=== PATIENT | male | born 1975 | race Caucasian/White ===

== ENCOUNTER 2017-06-29 11:53 | Emergency (ER) | payer OTHER ==
[~2017-06-29] VITALS: Ht 190.5 cm; Wt 77.1 kg
[~2017-06-29 11:53] MED LIST: ALPRAZOLAM 0.0.25 M1 PO; BENTYL 20 MG TA20 M1 PO; CITRATE OF MAG296 ML PO; HUMALOG100 UNIT/1 SUBQ; KETONE MC; LANTUS100 UNIT/M SUBQ; MIRALAX17 GM PO; NEURONTIN 300300 M1 PO; NEURONTIN300 MG PO; ONDANSETRON HCL4 M2 PO; TRAMADOL 50 MG50 MG PO
[2017-06-29 12:19] LABS: URINE BILIRUBIN NEGATIVE (Negative); URINE BLOOD NEGATIVE (Negative); URINE CLARITY CLEAR; URINE COLOR YELLOW; URINE GLUCOSE-RANDOM 3+ (Negative); URINE KETONES NEGATIVE (Negative); URINE LEUKOCYTES-REFLEX NEGATIVE (Negative); URINE NITRITE-REFLEX NEGATIVE (Negative); URINE PROTEIN NEGATIVE (Negative); URINE UROBILINOGEN 0.2 E.U./dl (0.2-1.0)
[2017-06-29 12:21] LABS: ABSOLUTE BASOPHILS 0.1 thou/uL (0.0-0.2); ABSOLUTE EOSINOPHILS 0.1 thou/uL (0.0-0.7); ABSOLUTE LYMPHOCYTES 1.4 thou/uL (0.8-5.3); ABSOLUTE MONOCYTES 0.4 thou/uL (0.0-1.2); ABSOLUTE NEUTROPHILS 3.5 thou/uL (1.6-8.1); BASOPHILS 1.2 %; EOSINOPHILS 1.8 %; HEMATOCRIT 47.3 % (42.0-52.0); HEMOGLOBIN 15.8 gm/dL (14.0-18.0); LYMPHOCYTES 24.7 %; MCH 31.8 pg (26.0-34.0); MCHC 33.3 g/dL (28.0-37.0); MCV 95.3 fL (80.0-100.0); MONOCYTES 7.9 %; MPV 7.7 fl. (7.2-11.1); NUCLEATED RBCS 0 /100WBC; PLATELET COUNT* 283 thou/uL (150-400); POLYS 64.4 %; RBC 4.97 mil/uL (4.50-6.00); RDW-CV 13.3 % (10.5-14.5); WBC 5.5 thou/uL (4.0-11.0)
[2017-06-29 12:32] LABS: CALCIUM 9.2 mg/dL (8.5-10.1); CREATININE 1.2 mg/dL (0.6-1.3); POTASSIUM 4.3 mmol/L (3.5-5.1)
[2017-06-29 12:33] LABS: TOTAL BILIRUBIN 0.5 mg/dL (<0.1-1.0)
[2017-06-29 13:11] LABS: BE -1.3 mmol/L (-2 to +3); HCO3 23.8 mmol/L (22.0-26.0); PCO2 41.3 mmHg (35.0-45.0); PO2 97.2 mmHg (75.0-100.0); pH 7.379 (7.340-7.450)
[2017-06-29] MEDS ORDERED: TRAMADOL 50 MG50 MG PO (16:22)
[2017-06-29 17:03] VITALS: BP 124/89
== END 2017-06-29 17:03 | disposition home or self-care (01) ==
LOC: M.ERS 11:53
PROVIDERS: Nurse Practitioner Family
DX: K52.9 Noninfective gastroenteritis and colitis, unspecified (principal); E11.65 Type 2 diabetes mellitus with hyperglycemia; E11.43 Type 2 diabetes mellitus with diabetic autonomic (poly)neuropathy; K31.84 Gastroparesis; F17.200 Nicotine dependence, unspecified, uncomplicated; Z88.0 Allergy status to penicillin; Z79.4 Long term (current) use of insulin

== ENCOUNTER 2017-09-16 13:09 | Emergency (ER) | payer OTHER ==
[~2017-09-16] VITALS: Ht 190.5 cm; Wt 77.1 kg
[2017-09-16] MEDS ORDERED: FLEXERIL PO (13:21)
[2017-09-16 14:43] LABS: ANION GAP 9 mmol/L (7-16); BUN 17 mg/dL (7-18); CALCIUM 8.3 mg/dL (8.5-10.1); CHLORIDE 100 mmol/L (98-107); CO2 25 mmol/L (21-32); GLUCOSE 406 mg/dL (70-99); POTASSIUM 4.4 mmol/L (3.5-5.1); SODIUM 134 mmol/L (136-145)
[2017-09-16 14:49] LABS: ABSOLUTE EOSINOPHILS 0.1 thou/uL (0.0-0.7); ABSOLUTE LYMPHOCYTES 1.2 thou/uL (0.8-5.3); ABSOLUTE MONOCYTES 0.2 thou/uL (0.0-1.2); ABSOLUTE NEUTROPHILS 2.2 thou/uL (1.6-8.1); BASOPHILS 0.9 %; EOSINOPHILS 1.4 %; HEMATOCRIT 37.5 % (42.0-52.0); HEMOGLOBIN 12.6 gm/dL (14.0-18.0); LYMPHOCYTES 32.1 %; MCH 31.2 pg (26.0-34.0); MCHC 33.5 g/dL (28.0-37.0); MCV 93.1 fL (80.0-100.0); MONOCYTES 6.3 %; MPV 7.9 fl. (7.2-11.1); NUCLEATED RBCS 0 /100WBC; PLATELET COUNT* 258 thou/uL (150-400); POLYS 59.3 %; RBC 4.03 mil/uL (4.50-6.00); WBC 3.8 thou/uL (4.0-11.0)
[2017-09-16 14:50] LABS: ALBUMIN 3.2 g/dL (3.4-5.0); ALKALINE PHOSPHATASE 85 U/L (46-116); SGOT 38 U/L (15-37); SGPT 65 U/L (30-65); TOTAL BILIRUBIN 0.5 mg/dL (<0.1-1.0); TROPONIN-I LEVEL <0.06 ng/mL (<0.06)
[2017-09-16 15:37] LABS: URINE BILIRUBIN NEGATIVE (Negative); URINE BLOOD NEGATIVE (Negative); URINE CLARITY CLEAR; URINE COLOR YELLOW; URINE GLUCOSE-RANDOM 3+ (Negative); URINE KETONES NEGATIVE (Negative); URINE LEUKOCYTES-REFLEX NEGATIVE (Negative); URINE NITRITE-REFLEX NEGATIVE (Negative); URINE PROTEIN NEGATIVE (Negative); URINE UROBILINOGEN 0.2 E.U./dl (0.2-1.0)
[2017-09-16 15:43] LABS: AMP/METHAMP POSITIVE (Negative); BARBITURATES Negative (Negative); BENZODIAZEPINES Negative (Negative); COCAINE Negative (Negative); METHADONE Negative (Negative); OPIATES Negative (Negative); PCP Negative (Negative); THC Negative (Negative)
[2017-09-16 15:56] LABS: MAGNESIUM 1.6 mg/dL (1.8-2.4); PHOSPHORUS* 2.9 mg/dL (2.5-4.9)
[2017-09-16 16:22] VITALS: BP 113/82
[2017-09-17 22:11] LABS: GLYCOHEMOGLOBIN (HGB A1C) 14.2 % (4.8-5.6)
[2017-09-19 14:10] LABS: HIV-1/HIV-2 ANTIBODY Non Reactive (Non Reactive)
== END 2017-09-16 16:23 | disposition home or self-care (01) ==
LOC: M.ERS 13:09
PROVIDERS: Personal Emergency Response Attendant
DX: K90.0 Celiac disease (principal); E11.9 Type 2 diabetes mellitus without complications; Z79.4 Long term (current) use of insulin; Z88.0 Allergy status to penicillin